=== PATIENT | female | born 1975 | race Hispanic/Latino ===

== ENCOUNTER 2017-12-15 22:52 | Outpatient (CLI) | payer MEDICAID ==
[2017-12-16 01:42] LABS: Bilirubin,Urine NEG (Negative); Blood,Urine NEG (Negative); Color,Urine Yellow (Yellow); Protein,Urine <15 mg/dL mg/dL (Negative); Urobilinogen,Urine < 2.0 mg/dL (<2.0)
[2017-12-16] MEDS ORDERED: ROCEPHIN/NS 1 GM/50 ML 1 GM/50 ML BAG IV ONE (02:20)
[2017-12-16] MEDS ORDERED: TYLENOL PO ONE (02:22)
[2017-12-16] MEDS ORDERED: TYLENOL ONE (02:27)
[2017-12-16] MEDS: LACTATED RINGERS 1,000 ML IV SCH ×2 (02:30→05:18)
[2017-12-16 03:50] LABS: Alanine Aminotransferase 8 units/L (7-56); Albumin 3.2 g/dL (3.9-5); BUN/Creatinine Ratio 15; Blood Urea Nitrogen 6 mg/dL (7-17); Calcium 8.8 mg/dL (8.4-10.2); Hemolysis Index 4; Mean Corpuscular HGB Conc 31 % (30-34); Mean Corpuscular Volume 79 fl (79-97); Platelet Count 208 K/mm3 (140-440); Red Blood Count 5.58 M/mm3 (3.65-5.03); Red Cell Distribution Width 17.1 % (13.2-15.2)
[2017-12-16 03:51] LABS: Hemoglobin 13.5 gm/dl (10.1-14.3)
[2017-12-16 03:52] LABS: Hematocrit 43.8 % (30.3-42.9); Mean Corpuscular Hemoglobin 24 pg (28-32)
[2017-12-16 04:13] VITALS: BP 95/51
--- NOTE | 2017-12-16 05:42 | Ultrasound Report ---
FINAL REPORT EXAM: US OB LIMITED HISTORY: CARMEN and placenta TECHNIQUE: A limited OB sonogram was obtained for evaluation of the placenta and amniotic fluid index. FINDINGS: The placenta is anterior in position and is grade 1. There is no evidence of abruption. The heart rate is 135 BPM. The CARMEN is 15.2 cm which is normal. The fetus is in cephalic presentation. IMPRESSION: Normal CARMEN of 15.2 cm. Normal anterior placenta, grade 1. No evidence of abruption. heart rate is 135 BPM.
--- NOTE | 2017-12-17 14:05 | Event Note ---
Date: 12/16/17 Patient was seen in L&D triage on 12/15/17 to early childhood specialist of 12/16/17 for complaints of round ligament pain, pelvic "pressure" and contractions. at 37 4/7 weeks gestation. Patient was found not to be in labor. No leaking of fluid or vaginal bleeding seen. NST reactive. BH contractions. Patient was hydrated with IV Lactated Ringers solution and was given IV Rocephin. She received PO Tylenol for pain and she refused any other medication for pain. Vital signs were stable. Discussed comfort measures for discomforts of late , daily movement counting, and signs of labor. Advised pt. to follow up with [facility] this Monday (3 days). Warning signs discussed with pt. Pt. denies SOB or chest pain or any other symptoms.
== END 2017-12-16 07:07 | disposition home or self-care (01) ==
LOC: TRG 22:52
PROVIDERS: ATTEND Obstetrics & Gynecology
DX: O26.893 Other specified pregnancy related conditions, third trimester (principal); R06.02 Shortness of breath; Z3A.37 37 weeks gestation of pregnancy
CPT/HCPCS: 36415; 76815; 80053; 81001; 85027; 96360; 96361; J0696; J7120

== ENCOUNTER 2017-12-19 13:02 | Outpatient (CLI) | payer OTHER | END 2017-12-19 14:12 | disposition home or self-care (01) | LOC: TRG 13:02 | PROVIDERS: ATTEND Obstetrics & Gynecology | DX: O47.1 False labor at or after 37 completed weeks of gestation (principal); Z3A.38 38 weeks gestation of pregnancy | CPT/HCPCS: 59025 ==